=== PATIENT | male | born 1990 | race African-American/Black ===

== ENCOUNTER 2025-01-09 21:59 | Emergency (ER) | payer OTHER ==
[2025-01-09 22:14] VITALS: RESP 18; BMI 25.9
[2025-01-09] MEDS ORDERED: ACETAMINOPHEN 325 MG TABLET (FP) ONE (23:14)
[2025-01-09] MEDS: ACETAMINOPHEN 500 MG TABLET (FP) PO ONE (23:17)
[2025-01-09 23:46] VITALS: BP 186/113; PULSE 70; TEMP 98.2
== END 2025-01-10 00:47 | disposition home or self-care (01) ==
LOC: JER 21:59 → JERFT 21:59 → JER 01-10 00:47
DX: M25.571 Pain in right ankle and joints of right foot (principal); R20.0 Anesthesia of skin
CPT/HCPCS: 73610-TC-RT-FY; 73630-TC-RT-FY; 99283-25